=== PATIENT | male | born 1955 | race Caucasian/White ===

== ENCOUNTER 2019-04-19 14:39 | Emergency (ER) | payer MEDICARE, MEDICAID ==
[~2019-04-19] VITALS: Ht 177.8 cm; Wt 86.2 kg
--- NOTE | 2019-04-19 14:50 | NUR ---
ED Nurse Note: pt brought in to ER from doctor's office by ambulance due to near syncope and sudden dizziness. pt went to doctor's office for 6 weeks post op follow up of spinal surgery and had sudden dizziness and near syncope and called 911. per EMS systolic was lower than 100 at the field but it went up to 110 upon arrival at triage. pt aao x4 and ambulatory but bedridden at this moment due to fatigue. calm and cooperative. skin clean and intact. no cardiac or pulmonary distress noted. BP noted at 119/72mmHg at bedside. pt is in gown and on manager cardiac.
[2019-04-19 15:00] VITALS: BP 119/72
--- NOTE | 2019-04-19 15:00 | NUR ---
ED Nurse Note: ERMD at bedside.
--- NOTE | 2019-04-19 15:07 | NUR ---
ED Nurse Note: x-ray at bedside.
--- NOTE | 2019-04-19 15:19 | Emergency Room Report ---
History of Present Illness General Chief Complaint: Dizziness Source: Patient Present Illness HPI Patient presents with episode of lightheadedness and near syncopal episode Patient was at his back specialist office patient is 6 weeks out from major low back fusion/revision surgery Patient was reportedly walking around when he became lightheaded weak Blood pressure was found to be low in the 80s Patient also had become diaphoretic And paramedics were summoned Patient also has comorbidities including cardiac disease with previous ACS and stent placement Upon arrival denies any chest pain denies any nausea Allergies: Coded Allergies: No Known Allergies (Unverified , 04/19/19) Patient History Past Medical History: see triage record Reviewed Nursing Documentation: PMH: Agreed; PSxH: Agreed Nursing Documentation-PMH Hx Cardiac Problems: Yes - stent surgery in 2017, spinal surgery 6 weeks ago Review of Systems All Other Systems: negative except mentioned in HPI Physical Exam Vital Signs Date Time Temp Pulse Resp B/P (MAP) Pulse Ox O2 Delivery O2 Flow Rate FiO2 04/19/19 14:32 98.6 68 17 113/76 (88) 98 Room Air Sp02 EP Interpretation: reviewed, normal General Appearance: no apparent distress Head: normocephalic, atraumatic Eyes: bilateral eye PERRL, bilateral eye EOMI ENT: EOM grossly intact Neck: supple, thyroid normal Respiratory: lungs clear, no respiratory distress, no retraction Cardiovascular #1: regular rate, rhythm Gastrointestinal: non tender, soft Musculoskeletal: normal inspection Neurologic: alert, oriented x3 Psychiatric: normal inspection Skin: no rash, palpation normal Lymphatic: no adenopathy Medical Decision Making Diagnostic Impression: Primary Impression: Near syncope ER Course Patient was having a follow-up for his multilevel revision back surgery Family reports that the patient had been walking and standing longer than usual recently patient does report feeling lightheaded and diaphoretic And from the reports Sounds to have had a near syncopal episode patient denies any full lapse of consciousness Multiple differentials are consideration including but not limited to cardiac cardiopulmonary,, infectious, vascular process patient at this time is hemodynamically stable Initially was found to be hypotensive and with a small bolus of fluids has been over 100 systolic Patient observed for prolonged period time I did make contact with the patient' s surgical scheduler they do not feel that this is likely related to any surgical intervention Patient does have cardiac risk factors and previous history at this time Of blood work returning at baseline levels EKG is normal On repeat eval patient continues to feel well We discussed possible further inpatient observation versus outpatient care patient reports that he feels well and comfortable with outpatient follow-up validation specialist PA / Rn contacted at [phone] Labs Test 04/19/19 15:20 04/19/19 15:25 04/19/19 16:10 Sodium Level 140 MMOL/L (136-145) Potassium Level 4.8 MMOL/L (3.5-5.1) Chloride Level 107 MMOL/L (98-107) Carbon Dioxide Level 24 MMOL/L (21-32) Anion Gap 9 mmol/L (5-15) Blood Urea Nitrogen 13 mg/dL (7-18) Creatinine 0.8 MG/DL (0.55-1.30) Estimat Glomerular Filtration Rate > 60 mL/min (>60) Glucose Level 156 MG/DL (74-106) Lactic Acid Level 1.30 mmol/L (0.4-2.0) Calcium Level 8.5 MG/DL (8.5-10.1) Total Bilirubin 0.2 MG/DL (0.2-1.0) Aspartate Amino Transf (AST/SGOT) 22 U/L (15-37) Alanine Aminotransferase (ALT/SGPT) 40 U/L (12-78) Alkaline Phosphatase 206 U/L (46-116) Total Creatine Kinase 46 U/L (26-308) Creatine Kinase MB 0.5 NG/ML (0.0-3.6) Creatine Kinase MB Relative Index 1.0 Troponin I 0.000 ng/mL (0.000-0.056) Total Protein 6.9 G/DL (6.4-8.2) Albumin 3.1 G/DL (3.4-5.0) Globulin 3.8 g/dL Albumin/Globulin Ratio 0.8 (1.0-2.7) White Blood Count 7.9 K/UL (4.8-10.8) Red Blood Count 4.20 M/UL (4.70-6.10) Hemoglobin 12.6 G/DL (14.2-18.0) Hematocrit 35.6 % (42.0-52.0) Mean Corpuscular Volume 85 FL (80-99) Mean Corpuscular Hemoglobin 29.9 PG (27.0-31.0) Mean Corpuscular Hemoglobin Concent 35.3 G/DL (32.0-36.0) Red Cell Distribution Width 11.2 % (11.6-14.8) Platelet Count 337 K/UL (150-450) Mean Platelet Volume 5.7 FL (6.5-10.1) Neutrophils (%) (Auto) 68.2 % (45.0-75.0) Lymphocytes (%) (Auto) 22.2 % (20.0-45.0) Monocytes (%) (Auto) 7.3 % (1.0-10.0) Eosinophils (%) (Auto) 1.6 % (0.0-3.0) Basophils (%) (Auto) 0.7 % (0.0-2.0) Urine Color Yellow Urine Appearance Clear Urine pH 6.5 (4.5-8.0) Urine Specific [place] 1.010 (1.005-1.035) Urine Protein Negative (NEGATIVE) Urine Glucose (UA) Negative (NEGATIVE) Urine Ketones Negative (NEGATIVE) Urine Blood Negative (NEGATIVE) Urine Nitrite Negative (NEGATIVE) Urine Bilirubin Negative (NEGATIVE) Urine Urobilinogen 1 MG/DL (0.0-1.0) Urine Leukocyte Esterase Negative (NEGATIVE) EKG Diagnostic Results Rate: normal Rhythm: NSR ST Segments: no acute changes Rhythm Strip Diag. Results EP Interpretation: yes Rate: 77 Rhythm: NSR, no PVC's, no ectopy Chest X-Ray Diagnostic Results Chest X-Ray Diagnostic Results : Chest X-Ray Ordered: Yes # of Views/Limited/Complete: 1 View Indication: Chest Pain EP Interpretation: Yes Interpretation: no consolidation, no effusion, no pneumothorax Impression: No acute disease Electronically Signed by: Kyrie Pina DO Last Vital Signs Date Time Temp Pulse Resp B/P (MAP) Pulse Ox O2 Delivery O2 Flow Rate FiO2 04/19/19 15:00 68 17 Room Air 04/19/19 15:00 98.6 119/72 98 Status: improved Disposition: HOME, SELF-CARE Condition: Improved Additional Instructions: Patient is provided with the discharge instructions notified to follow up with primary doctor in the next 2-3 days otherwise return to the er with any worsening symptoms. Please note that this report is being documented using [employer] technology. This can lead to erroneous entry secondary to incorrect interpretation by the dictating instrument. Kyrie Pina DO Apr 19, 2019 15:19
[2019-04-19 15:57] LABS: BASOPHILS % (AUTO) 0.7 % (0.0-2.0); EOSINOPHILS % (AUTO) 1.6 % (0.0-3.0); HEMATOCRIT 35.6 % (42.0-52.0); HEMOGLOBIN 12.6 G/DL (14.2-18.0); LYMPHOCYTES % (AUTO) 22.2 % (20.0-45.0); MEAN CORPUSCULAR VOLUME 85 FL (80-99); MONOCYTES % (AUTO) 7.3 % (1.0-10.0); NEUTROPHILS % (AUTO) 68.2 % (45.0-75.0); PLATELET COUNT 337 K/UL (150-450); RED CELL DISTRIBUTION WIDTH 11.2 % (11.6-14.8); WHITE BLOOD COUNT 7.9 K/UL (4.8-10.8)
[2019-04-19 16:11] LABS: ANION GAP 9 mmol/L (5-15); BLOOD UREA NITROGEN 13 mg/dL (7-18); CALCIUM 8.5 MG/DL (8.5-10.1); CARBON DIOXIDE 24 MMOL/L (21-32); CHLORIDE 107 MMOL/L (98-107); CREATININE 0.8 MG/DL (0.55-1.30); POTASSIUM 4.8 MMOL/L (3.5-5.1); SODIUM 140 MMOL/L (136-145)
[2019-04-19 16:24] LABS: ALANINE AMINOTRANSFERASE 40 U/L (12-78); ALBUMIN 3.1 G/DL (3.4-5.0); ALBUMIN/GLOBULIN RATIO 0.8 (1.0-2.7); ALKALINE PHOSPHATASE 206 U/L (46-116); ASPARTATE AMINO TRANSFERASE 22 U/L (15-37); BILIRUBIN,TOTAL 0.2 MG/DL (0.2-1.0); CKMB 0.5 NG/ML (0.0-3.6); CREATINE KINASE 46 U/L (26-308)
[2019-04-19 16:47] LABS: APPEARANCE,URINE CLEAR; BILIRUBIN, URINE NEGATIVE (NEGATIVE); GLUCOSE, URINE (UA) NEGATIVE (NEGATIVE); KETONES,URINE NEGATIVE (NEGATIVE); LEUKOCYTE ESTERASE ,URINE NEGATIVE (NEGATIVE); NITRITE,URINE NEGATIVE (NEGATIVE); PH,URINE 6.5 (4.5-8.0); PROTEIN,URINE NEGATIVE (NEGATIVE); UROBILINOGEN,URINE 1 MG/DL (0.0-1.0)
[2019-04-19 16:52] LABS: COLOR,URINE YELLOW
--- NOTE | 2019-04-19 17:04 | NUR ---
ED Nurse Note: Pt requested food. ERMD made aware and approved pt to eat.
--- NOTE | 2019-04-19 17:44 | NUR ---
ED Nurse Note: ERMD at bedside
[2019-04-19 18:45] VITALS: BP 156/51
--- NOTE | 2019-04-19 18:45 | NUR ---
ER DISCHARGE NOTE: Patient is cleared to be discharged home per ERMD, pt is aox4, on room air, with stable vital signs. pt was given dc instructions, no medications prescribed, pt was able to verbalize understanding, pt id band and iv site removed without complications. pt left ER in stable condition in a wheelchair accompanied by one quality control technician. pt took all belongings.
--- NOTE | 2019-04-20 08:39 | Diagnostic Imaging Report ---
Indication: Chest pain Technique: XRAY Chest 1v Comparison: None Findings: Heart size and mediastinal contours are within normal limits for AP technique. There is no focal airspace consolidation, pneumothorax or pleural effusion. There are degenerative changes of the spine. Lower thoracic and lumbar fixation hardware is partially visualized. Osseous structures demonstrate no acute abnormality. Impression: No radiographic evidence of acute cardiopulmonary disease.
--- NOTE | 2019-04-21 13:53 | Cardiology Report ---
APPROVED REPORT EKG Measurement Heart [id number] ID [id number] Normal sinus rhythm Normal ECG
== END 2019-04-19 18:45 | disposition home or self-care (01) ==
LOC: EDBD 14:39 → EMR 15:30
DX: R55 Syncope and collapse (principal); Z98.1 Arthrodesis status
CPT/HCPCS: 36415; 71045; 80053; 81003; 82550; 82553; 83605; 84484; 85025; 87040; 93005; 96360; 99284